=== PATIENT | male | born 2000 | race Caucasian/White ===

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

== ENCOUNTER 2020-11-30 12:28 | Emergency (ER) | payer OTHER ==
[~2020-11-30 12:28] MED LIST: CARAFATE 1 GM TA1 GM PO; CLINDAMYCIN HC300 MG PO; NAPROSYN500 MG PO; ZOFRAN ODT 4 MG4 MG PO; ZOFRAN4 MG PO
== END 2020-11-30 14:30 | disposition home or self-care (01) ==
LOC: ER1 12:28
DX: R10.9 Unspecified abdominal pain (principal); R11.2 Nausea with vomiting, unspecified; F17.200 Nicotine dependence, unspecified, uncomplicated; Z88.0 Allergy status to penicillin; Z79.899 Other long term (current) drug therapy
CPT/HCPCS: 96374; 96375; 99284; C9113; J2405

== ENCOUNTER 2020-12-16 13:30 | Emergency (ER) | payer OTHER | END 2020-12-16 14:12 | disposition home or self-care (01) | LOC: ER1 13:30 | DX: R11.2 Nausea with vomiting, unspecified (principal); R10.84 Generalized abdominal pain; F17.210 Nicotine dependence, cigarettes, uncomplicated; Z88.0 Allergy status to penicillin | CPT/HCPCS: 99284 ==

== ENCOUNTER 2021-08-28 23:42 | Emergency (ER) | payer OTHER ==
[2021-08-29] MEDS ORDERED: IBUPROFEN600 MG PO (00:23)
[2021-08-29] MEDS ORDERED: CLINDAMYCIN HC300 MG PO (00:23)
== END 2021-08-29 | disposition home or self-care (01) ==
LOC: ER1 23:42
DX: K05.219 Aggressive periodontitis, localized, unspecified severity (principal)
CPT/HCPCS: 96374; 99282